=== PATIENT | male | born 1950 | race Hispanic/Latino ===

== ENCOUNTER 2021-03-01 05:32 | Observation (INO) | payer MEDICARE ==
[2021-02-27 10:22] LABS: BASOPHILS % 0.3 % (0.0-1.0); EOSINOPHILS # (AUTO) 0.3 (0.0-0.4); EOSINOPHILS % 4.8 % (0.0-6.0); HEMATOCRIT 42.3 % (38.2-49.6); HEMOGLOBIN 14.7 g/dL (14.0-18.0); LYMPHOCYTES # (AUTO) 1.3 (1.0-3.2); LYMPHOCYTES % 19.7 % (18.0-39.1); MEAN CORPUSCULAR HGB CONC 34.8 g/dL (31-35); MEAN CORPUSCULAR VOLUME 97.9 fL (81-99); MONOCYTES # (AUTO) 0.5 (0.2-0.8); MONOCYTES % 7.4 % (4.4-11.3); NEUTROPHILS # (AUTO) 4.5 (2.1-6.9); NEUTROPHILS % 67.3 % (38.7-80.0); PLATELET COUNT 140 x10e3/uL (140-360); RED BLOOD COUNT 4.32 x10e6/uL (4.3-5.7); RED CELL DISTRIBUTION WIDTH 12.7 % (11.7-14.4)
[2021-02-27 10:32] LABS: INR 0.94; PROTHROMBIN TIME 13.2 seconds (11.9-14.5)
[2021-02-27 10:37] LABS: ANION GAP 14.1 mmol/L (8-16); BLOOD UREA NITROGEN 11 mg/dL (7-26); BUN/CREATININE RATIO 15 (6-25); CALCIUM 9.1 mg/dL (8.4-10.2); CARBON DIOXIDE 23 mmol/L (22-29); CHLORIDE 109 mmol/L (98-107); CREATININE, SERUM 0.73 mg/dL (0.72-1.25); EST GLOMERULAR FILTRATION RATE > 60 ML/MIN (60-); GLUCOSE 106 mg/dL (74-118); POTASSIUM 4.1 mmol/L (3.5-5.1); SODIUM 142 mmol/L (136-145)
[~2021-03-01] VITALS: Ht 182.9 cm; Wt 111.6 kg
[~2021-03-01 05:32] MED LIST: LIPITOR10 MG PO; METOPROLOL SUCC25 MG PO; PLAVIX75 MG PO; PRAVACHOL40 MG PO; ZESTRIL2.5 MG PO
[2021-03-01] MEDS ORDERED: ULTRAM50 MG PO (05:47)
[2021-03-01] MEDS ORDERED: TYLENOL EXTRA500 MG PO (05:47)
[2021-03-01] MEDS ORDERED: CEFAZOLIN SOD 1 GM/NS 50ML 100 ML IV ONE (05:52)
[2021-03-01] MEDS ORDERED: VANCOMYCIN HCL 1 GM VIAL ONE (06:47)
[2021-03-01] MEDS ORDERED: THROMBIN FOR SOLN 5,000 UNIT VIAL ONE (06:47)
[2021-03-01] MEDS ORDERED: BUPIVACAINE 0.5%/EPI 30 ML SDV INJ ONE (06:47)
[2021-03-01] MEDS ORDERED: IBUPROFEN 800MG/ 200ML 200 ML IV ONE (07:40)
[2021-03-01] MEDS ORDERED: ACETAMINOPHEN 1000 MG/100 ML 100 ML IV ONE (07:40)
[2021-03-01] MEDS ORDERED: LIDOCAINE HCL (LTA) 4 ML SOLN ONE (07:40)
[2021-03-01] MEDS ORDERED: HYDROCODON-ACE1 EA12 PEG (08:52)
[2021-03-01] MEDS: METOPROLOL SUCCINATE 25 MG TAB XL PO SCH (09:00)
[2021-03-01] MEDS: LACTATED RINGER'S 1,000 ML IV SCH ×2 (09:00→17:20)
[2021-03-01] MEDS ORDERED: ACETAMINOPHEN 325 MG TAB PO PRN (09:00)
[2021-03-01] MEDS ORDERED: MORPHINE SULFATE 5 MG/ML VIAL IM PRN (09:00)
[2021-03-01] MEDS ORDERED: ONDANSETRON HCL INJ 2MG/ML 2ML 2 MG/ML VIAL IV PRN (09:00)
[2021-03-01] MEDS ORDERED: MAGNESIUM/ALUMINUM/SIMETHICONE 30 ML UDC PO PRN (09:00)
[2021-03-01] MEDS ORDERED: CARISOPRODOL 350 MG TAB PO PRN (09:00)
[2021-03-01] MEDS ORDERED: HYDROMORPHONE 2MG/ML 2 MG/ML ML IV PRN (09:00)
[2021-03-01] MEDS: LISINOPRIL 2.5 MG TAB PO SCH (09:00)
[2021-03-01] MEDS ORDERED: OXYCODONE/ACETAMINOPHEN 5-325 1 EACH TABLET PO PRN (09:00)
[2021-03-01] MEDS ORDERED: PROMETHAZINE HCL (IM) 25 MG/ML VIAL IM PRN (09:00)
[2021-03-01] MEDS ORDERED: FENTANYL CITRATE/PF 100MCG/2 ML INJ ONE (11:04)
[2021-03-01 11:45] VITALS: BP 135/76
[2021-03-01 12:07] VITALS: BP 131/79
[2021-03-01] MEDS: TRAMADOL HCL 50 MG TAB PO SCH ×2 (12:49→17:30)
[2021-03-01 12:59] LABS: BASOPHILS % 0.3 % (0.0-1.0); EOSINOPHILS % 0.1 % (0.0-6.0); HEMATOCRIT 42.7 % (38.2-49.6); HEMOGLOBIN 14.3 g/dL (14.0-18.0); LYMPHOCYTES # (AUTO) 0.6 (1.0-3.2); LYMPHOCYTES % 7.7 % (18.0-39.1); MEAN CORPUSCULAR HEMOGLOBIN 32.3 pg (28-32); MEAN CORPUSCULAR HGB CONC 33.5 g/dL (31-35); MEAN CORPUSCULAR VOLUME 96.4 fL (81-99); MONOCYTES # (AUTO) 0.1 (0.2-0.8); MONOCYTES % 0.7 % (4.4-11.3); NEUTROPHILS % 90.8 % (38.7-80.0); PLATELET COUNT 145 x10e3/uL (140-360); RED BLOOD COUNT 4.43 x10e6/uL (4.3-5.7); RED CELL DISTRIBUTION WIDTH 12.4 % (11.7-14.4)
[2021-03-01 13:13] LABS: BLOOD UREA NITROGEN 16 mg/dL (7-26); BUN/CREATININE RATIO 18 (6-25); CALCIUM 8.2 mg/dL (8.4-10.2); CARBON DIOXIDE 24 mmol/L (22-29); CHLORIDE 106 mmol/L (98-107); EST GLOMERULAR FILTRATION RATE > 60 ML/MIN (60-); GLUCOSE 230 mg/dL (74-118); SODIUM 141 mmol/L (136-145)
[2021-03-01] MEDS: CEFAZOLIN SOD 1 GM/NS 50ML 50 ML IV SCH (16:42)
[2021-03-01] MEDS ORDERED: LIDOCAINE HCL 2% JELLY 5 ML TUBE ONE (17:13)
[2021-03-01] MEDS ORDERED: SEVOFLURANE INHAL SOLN 250 ML PEN BTL ONE (17:13)
[2021-03-01] MEDS ORDERED: DEXAMETHASONE SOD PHOS INJ 4 MG/ML VIAL ONE (17:13)
[2021-03-01] MEDS ORDERED: ROCURONIUM BROMIDE 10 MG/ML 5ML VIAL IV ONE (17:13)
[2021-03-01] MEDS ORDERED: PROPOFOL IV EMULSION 10 MG/ML 20 ML VIAL ONE (17:13)
[2021-03-01] MEDS ORDERED: ONDANSETRON HCL INJ 2MG/ML 2ML 2 MG/ML VIAL ONE (17:13)
[2021-03-01] MEDS ORDERED: NEOSTIGMINE 1 MG/ML 10ML VIAL ONE (17:13)
[2021-03-01] MEDS ORDERED: GLYCOPYRROLATE INJ 0.2 MG/ML VIAL ONE (17:13)
[2021-03-01] MEDS ORDERED: LIDOCAINE HCL 2% LOCAL INJ 5 ML SDV VIAL INJ ONE (17:13)
[2021-03-01] MEDS ORDERED: POVIDONE IODINE 0.05% 0.05 % ML PO ONE (17:13)
[2021-03-01 18:42] VITALS: BP 124/64
[2021-03-01 20:00] VITALS: BP 124/64
[2021-03-01] MEDS: SIMVASTATIN 40 MG TAB PO SCH ×3 (20:42→21:00)
[2021-03-01] MEDS ORDERED: ZOLPIDEM TARTRATE 5 MG TAB PO PRN (21:00)
[2021-03-02 00:48] VITALS: BP 118/63
[2021-03-02] MEDS ORDERED: SODIUM CHLORIDE 0.9% 250ML 250 ML ONE (01:01)
[2021-03-02] MEDS: CEFAZOLIN SOD 1 GM/NS 50ML 50 ML IV SCH ×2 (01:13→07:47)
[2021-03-02] MEDS: LACTATED RINGER'S 1,000 ML IV SCH (01:40)
[2021-03-02 04:00] VITALS: BP 124/74
[2021-03-02] MEDS: TRAMADOL HCL 50 MG TAB PO SCH ×2 (06:11)
[2021-03-02] MEDS: LISINOPRIL 2.5 MG TAB PO SCH (07:54)
[2021-03-02] MEDS: METOPROLOL SUCCINATE 25 MG TAB XL PO SCH (07:55)
[2021-03-02 08:00] VITALS: BP 116/69
[2021-03-02 08:21] VITALS: BP 116/69
== END 2021-03-02 09:14 | disposition home or self-care (01) ==
LOC: OR 05:32 → PACU V 08:48 → IMCU 11:20 → MED/SURG 18:40
PROVIDERS: ADMIT Neurological Surgery; ATTEND Neurological Surgery
DX: M51.15 Intervertebral disc disorders with radiculopathy, thoracolumbar region (principal); Z20.822 Contact with and (suspected) exposure to COVID-19
CPT/HCPCS: 36415 ×2; 63055; 71046; 72020; 80048 ×2; 85025 ×2; 85610; 85730; 86850; 86900; 88304; 88311; 93005; G0378 ×2; J0131; J0690 ×2; J1100; J2001 ×2; J2405; J2704; J2710; J3010; J3370; J7050; U0002